=== PATIENT | male | born 1975 | race Two or more races ===

== ENCOUNTER 2021-04-12 16:01 | Inpatient (IN) | payer MEDICAID, OTHER ==
[~2021-04-12] VITALS: Ht 180.3 cm; Wt 86.2 kg
[2021-04-12] MEDS ORDERED: CLINDAMYCIN 600MG IV 50 ML IV ONE (17:30)
[2021-04-12] MEDS ORDERED: SODIUM CHLORIDE 0.9% 500 ML IV ONE (17:30)
[2021-04-12 18:17] LABS: Basophils # (auto) 0.1 10 ^3/uL (0-0.2); Basophils % (auto) 0.8 % (0.0-2.0); Eosinophils # (auto) 0.3 10 ^3/uL (0-0.8); Eosinophils % (auto) 1.6 % (0.0-7.0); Hematocrit 49.1 % (41.0-53.0); Hemoglobin 16.7 g/dL (13.5-17.5); Lymphocytes # (auto) 3.6 10 ^3/uL (0.4-5.4); Lymphocytes % (auto) 20.6 % (10.0-50.0); Mean Corpuscular Hemoglobin 30.3 pg (28.0-32.0); Mean Corpuscular Hgb Conc. 33.9 g/dL (32.0-36.0); Mean Corpuscular Volume 89.3 fL (80.0-100.0); Monocytes # (auto) 0.6 10 ^3/uL (0-1.3); Monocytes % (auto) 3.7 % (0.0-12.0); Neutrophils # (auto) 12.7 10 ^3/uL (1.6-8.6); Neutrophils % (auto) 73.3 % (37.0-80.0); Nucleated Red Blood Cells % 0.1 %; Red Cell Distribution Width 13.4 % (11.8-14.3); White Blood Cell 17.3 10^3/uL (4.4-10.8)
[2021-04-12 18:32] LABS: Albumin 3.7 g/dL (3.4-5.0); Calcium 9.5 mg/dL (8.5-10.1); Potassium 3.9 mmol/L (3.5-5.1)
[2021-04-12 18:34] LABS: INR 1.21 (0.9-1.15); Partial Thromboplastin Time 32.5 sec (23.6-33.0)
[2021-04-12 18:35] LABS: BUN/Creatinine Ratio 18.9; Bilirubin, Total 0.3 mg/dL (0.2-1.0); Total Protein 8.3 g/dL (6.4-8.2)
[2021-04-12] MEDS ORDERED: NITROGLYCERIN 0.4 MG SL TAB SL PRN (23:45)
[2021-04-12] MEDS ORDERED: DEXTROSE (50%) 50ML SYRG IV PRN (23:45)
[2021-04-12] MEDS ORDERED: MORPHINE SULFATE INJECTION 2 MG/ML SYRG IV PRN (23:45)
[2021-04-12] MEDS ORDERED: ONDANSETRON HCL 4 MG/2 ML VIAL IV PRN (23:45)
[2021-04-13] MEDS: PIPERACILLIN-TAZOB 3.375GM 100 ML IV SCH ×4 (06:00→17:34)
[2021-04-13] MEDS: ACCU-CHEK COMFORT CURVE STRIP VI SCH ×4 (07:00→21:54)
[2021-04-13] MEDS: InsuLIN REG 1unit/0.01ml Soln (100units/ml) SC SCH ×4 (07:00→21:52)
[2021-04-13] MEDS: ATORVASTATIN 20 MG TAB PO SCH (21:54)
[2021-04-13 22:49] VITALS: BP 133/73
[2021-04-14 00:44] VITALS: BP 133/73
[2021-04-14] MEDS: PIPERACILLIN-TAZOB 3.375GM 100 ML IV SCH ×5 (02:50→23:24)
[2021-04-14] MEDS ORDERED: CEPH500C PO (03:06)
[2021-04-14] MEDS ORDERED: AMLO-489 PO (03:06)
[2021-04-14] MEDS ORDERED: HYDR-4902 PO (03:06)
[2021-04-14] MEDS ORDERED: ATOR10TA52 PO (03:06)
[2021-04-14] MEDS ORDERED: LABE200T7 PO (03:06)
[2021-04-14 05:00] VITALS: BP 127/76
[2021-04-14] MEDS: ACCU-CHEK COMFORT CURVE STRIP VI SCH ×4 (06:31→21:52)
[2021-04-14] MEDS: InsuLIN REG 1unit/0.01ml Soln (100units/ml) SC SCH ×4 (06:31→21:53)
[2021-04-14 09:00] VITALS: BP 123/77
[2021-04-14] MEDS: amLODIPine BESYLATE 5 MG TAB PO SCH (09:35)
[2021-04-14 13:00] VITALS: BP 127/80
[2021-04-14 17:00] VITALS: BP 123/83
[2021-04-14 19:35] VITALS: BP 134/74
[2021-04-14] MEDS: ATORVASTATIN 20 MG TAB PO SCH (21:52)
[2021-04-15 05:48] LABS: Basophils # (auto) 0.1 10 ^3/uL (0-0.2); Basophils % (auto) 0.7 % (0.0-2.0); Eosinophils # (auto) 0.5 10 ^3/uL (0-0.8); Eosinophils % (auto) 3.3 % (0.0-7.0); Hematocrit 45.4 % (41.0-53.0); Hemoglobin 15.3 g/dL (13.5-17.5); Lymphocytes # (auto) 3.1 10 ^3/uL (0.4-5.4); Lymphocytes % (auto) 22.3 % (10.0-50.0); Mean Corpuscular Hemoglobin 30.3 pg (28.0-32.0); Mean Corpuscular Hgb Conc. 33.8 g/dL (32.0-36.0); Mean Corpuscular Volume 89.6 fL (80.0-100.0); Neutrophils # (auto) 9.4 10 ^3/uL (1.6-8.6); Neutrophils % (auto) 66.7 % (37.0-80.0); Nucleated Red Blood Cells % 0.1 %; Red Blood Cells 5.06 10^6/uL (4.5-5.90); Red Cell Distribution Width 13.3 % (11.8-14.3); White Blood Cell 14.1 10^3/uL (4.4-10.8)
[2021-04-15 06:00] VITALS: BP 135/83
[2021-04-15 06:10] LABS: INR 1.14 (0.9-1.15); Partial Thromboplastin Time 30.8 sec (23.6-33.0)
[2021-04-15] MEDS: PIPERACILLIN-TAZOB 3.375GM 100 ML IV SCH ×3 (06:17→17:53)
[2021-04-15] MEDS: ACCU-CHEK COMFORT CURVE STRIP VI SCH ×4 (06:17→21:43)
[2021-04-15] MEDS: InsuLIN REG 1unit/0.01ml Soln (100units/ml) SC SCH ×4 (06:21→21:43)
[2021-04-15 06:38] LABS: Albumin 3.2 g/dL (3.4-5.0); Calcium 8.7 mg/dL (8.5-10.1); Potassium 3.5 mmol/L (3.5-5.1)
[2021-04-15 06:43] LABS: BUN/Creatinine Ratio 21.4; Bilirubin, Total 0.3 mg/dL (0.2-1.0); Total Protein 7.2 g/dL (6.4-8.2)
[2021-04-15 07:10] LABS: Urine Bacteria FEW /hpf (None Seen); Urine Blood 1+ /uL (Negative); Urine Specific Gravity 1.024 (1.001-1.035); Urine WBC 1 /hpf (0 - 3)
[2021-04-15 09:00] VITALS: BP 123/76
[2021-04-15] MEDS: amLODIPine BESYLATE 5 MG TAB PO SCH (10:00)
[2021-04-15] MEDS ORDERED: ceFAZolin 1GM/50ML 100 ML IV ONE (12:21)
[2021-04-15] MEDS ORDERED: PROPOFOL 10 MG/ML 20 ML IV ONE (12:32)
[2021-04-15] MEDS ORDERED: MIDAZOLAM HCL 2MG/2ML 2ml VIAL (1mg/ml) ONE (12:32)
[2021-04-15] MEDS ORDERED: fentaNYL CITRATE 100 MCG/2 ML VL ONE (12:32)
[2021-04-15] MEDS ORDERED: ONDANSETRON HCL 4 MG/2 ML VIAL ONE (12:32)
[2021-04-15] MEDS ORDERED: SODIUM CHLORIDE LOCK 10 ML ONE (12:32)
[2021-04-15] MEDS ORDERED: ACCU-CHEK COMFORT CURVE STRIP VI ONE (13:00)
[2021-04-15] MEDS ORDERED: METOCLOPRAMIDE HCL 5MG/ml INJ 2ml VIAL IV PRN (13:00)
[2021-04-15] MEDS ORDERED: ceFAZolin 1GM VL ONE (13:00)
[2021-04-15] MEDS ORDERED: HYDROmorphone HCL 2 MG/ML VL IV PRN (13:00)
[2021-04-15] MEDS ORDERED: MORPHINE SULFATE 4 MG/ML SYR/VIAL IV PRN (13:00)
[2021-04-15] MEDS: MORPHINE SULFATE INJECTION 2 MG/ML SYRG IV PRN (15:18)
[2021-04-15] MEDS: ATORVASTATIN 20 MG TAB PO SCH (21:40)
[2021-04-15 22:00] VITALS: BP 152/105
[2021-04-16] VITALS (7 sets, daily range): BP systolic 122–151; BP diastolic 81–91
[2021-04-16] MEDS: PIPERACILLIN-TAZOB 3.375GM 100 ML IV SCH ×4 (06:13→18:11)
[2021-04-16] MEDS: ACCU-CHEK COMFORT CURVE STRIP VI SCH ×4 (06:14→22:00)
[2021-04-16] MEDS: InsuLIN REG 1unit/0.01ml Soln (100units/ml) SC SCH ×4 (06:30→22:00)
[2021-04-16] MEDS: amLODIPine BESYLATE 5 MG TAB PO SCH (10:33)
[2021-04-16] MEDS: ATORVASTATIN 20 MG TAB PO SCH (22:42)
[2021-04-16] MEDS: MORPHINE SULFATE INJECTION 2 MG/ML SYRG IV PRN (22:43)
[2021-04-17] MEDS: PIPERACILLIN-TAZOB 3.375GM 100 ML IV SCH ×5 (04:49→23:49)
[2021-04-17 05:00] VITALS: BP 122/82
[2021-04-17 06:21] LABS: Basophils # (auto) 0 10 ^3/uL (0-0.2); Basophils % (auto) 0.2 % (0.0-2.0); Eosinophils # (auto) 0.1 10 ^3/uL (0-0.8); Eosinophils % (auto) 0.4 % (0.0-7.0); Hematocrit 44.9 % (41.0-53.0); Hemoglobin 15.2 g/dL (13.5-17.5); Lymphocytes # (auto) 3.3 10 ^3/uL (0.4-5.4); Lymphocytes % (auto) 18.9 % (10.0-50.0); Mean Corpuscular Hemoglobin 30.2 pg (28.0-32.0); Mean Corpuscular Hgb Conc. 33.9 g/dL (32.0-36.0); Mean Corpuscular Volume 88.9 fL (80.0-100.0); Monocytes % (auto) 5.8 % (0.0-12.0); Neutrophils # (auto) 12.9 10 ^3/uL (1.6-8.6); Neutrophils % (auto) 74.7 % (37.0-80.0); Red Blood Cells 5.05 10^6/uL (4.5-5.90); Red Cell Distribution Width 13.4 % (11.8-14.3); White Blood Cell 17.3 10^3/uL (4.4-10.8)
[2021-04-17] MEDS: InsuLIN REG 1unit/0.01ml Soln (100units/ml) SC SCH ×4 (06:27→21:49)
[2021-04-17] MEDS: ACCU-CHEK COMFORT CURVE STRIP VI SCH ×4 (06:28→21:37)
[2021-04-17 06:39] LABS: BUN/Creatinine Ratio 27.6; Calcium 8.6 mg/dL (8.5-10.1); Potassium 3.7 mmol/L (3.5-5.1)
[2021-04-17 06:41] LABS: Bilirubin, Total 0.3 mg/dL (0.2-1.0); Total Protein 7.1 g/dL (6.4-8.2)
[2021-04-17 08:15] VITALS: BP 127/77
[2021-04-17 09:00] VITALS: BP 127/77
[2021-04-17] MEDS: amLODIPine BESYLATE 5 MG TAB PO SCH (10:14)
[2021-04-17] MEDS: MORPHINE SULFATE INJECTION 2 MG/ML SYRG IV PRN ×2 (14:33→16:30)
[2021-04-17 15:37] VITALS: BP 141/86
[2021-04-17] MEDS ORDERED: NICOTINE 21MG/24 HR TOPICAL PATCH TD ONE (17:15)
[2021-04-17 17:21] VITALS: BP 159/94
[2021-04-17] MEDS: ATORVASTATIN 20 MG TAB PO SCH (21:36)
[2021-04-17 22:00] VITALS: BP 149/88
[2021-04-18] MEDS: MORPHINE SULFATE INJECTION 2 MG/ML SYRG IV PRN (02:42)
[2021-04-18 05:00] VITALS: BP 133/81
[2021-04-18] MEDS: PIPERACILLIN-TAZOB 3.375GM 100 ML IV SCH ×4 (05:15→23:52)
[2021-04-18] MEDS: InsuLIN REG 1unit/0.01ml Soln (100units/ml) SC SCH ×4 (06:30→22:00)
[2021-04-18] MEDS: ACCU-CHEK COMFORT CURVE STRIP VI SCH ×4 (06:30→22:19)
[2021-04-18 09:00] VITALS: BP 151/92
[2021-04-18] MEDS: NICOTINE 21MG/24 HR TOPICAL PATCH TD SCH (10:00)
[2021-04-18] MEDS: amLODIPine BESYLATE 5 MG TAB PO SCH (10:13)
[2021-04-18 13:00] VITALS: BP 138/85
[2021-04-18 17:11] VITALS: BP 147/92
[2021-04-18] MEDS: ATORVASTATIN 20 MG TAB PO SCH (22:19)
[2021-04-18 23:16] VITALS: BP 134/84
[2021-04-19 04:58] VITALS: BP 123/77
[2021-04-19] MEDS: ACCU-CHEK COMFORT CURVE STRIP VI SCH ×4 (06:22→21:10)
[2021-04-19] MEDS: PIPERACILLIN-TAZOB 3.375GM 100 ML IV SCH ×3 (06:22→18:30)
[2021-04-19] MEDS: InsuLIN REG 1unit/0.01ml Soln (100units/ml) SC SCH ×4 (06:22→21:16)
[2021-04-19 09:30] VITALS: BP 133/87
[2021-04-19] MEDS: NICOTINE 21MG/24 HR TOPICAL PATCH TD SCH (10:00)
[2021-04-19] MEDS: amLODIPine BESYLATE 5 MG TAB PO SCH (10:45)
[2021-04-19 13:00] VITALS: BP 140/80
[2021-04-19 17:00] VITALS: BP 128/77
[2021-04-19] MEDS: ATORVASTATIN 20 MG TAB PO SCH (21:10)
[2021-04-19 22:00] VITALS: BP 139/86
[2021-04-20] MEDS: PIPERACILLIN-TAZOB 3.375GM 100 ML IV SCH ×3 (00:18→11:39)
[2021-04-20 05:00] VITALS: BP 140/87
[2021-04-20] MEDS: InsuLIN REG 1unit/0.01ml Soln (100units/ml) SC SCH ×2 (05:35→11:41)
[2021-04-20] MEDS: ACCU-CHEK COMFORT CURVE STRIP VI SCH ×2 (05:35→11:07)
[2021-04-20 09:00] VITALS: BP 125/79
[2021-04-20] MEDS: NICOTINE 21MG/24 HR TOPICAL PATCH TD SCH (10:00)
[2021-04-20] MEDS: amLODIPine BESYLATE 5 MG TAB PO SCH (11:07)
[2021-04-20 13:12] VITALS: BP 146/98
== END 2021-04-20 15:10 | disposition home health service (06) | DRG 380 ==
LOC: ER 16:01 → TELE 23:32 → TELE-WESTW 04-13 20:47 → WEST WING 04-16 06:55
PROVIDERS: ADMIT Internal Medicine; ATTEND Internal Medicine
PROC: 0JBR0ZZ Excision of Left Foot Subcutaneous Tissue and Fascia, Open Approach (ICD-10-PCS; principal; 2021-04-15 13:04)
DX: E11.621 Type 2 diabetes mellitus with foot ulcer (principal); L97.429 Non-pressure chronic ulcer of left heel and midfoot with unspecified severity; L03.116 Cellulitis of left lower limb; I10 Essential (primary) hypertension; F17.210 Nicotine dependence, cigarettes, uncomplicated; E78.5 Hyperlipidemia, unspecified; Z20.822 Contact with and (suspected) exposure to COVID-19; X58.XXXA Exposure to other specified factors, initial encounter; Y93.89 Activity, other specified; Y92.89 Other specified places as the place of occurrence of the external cause; Y99.8 Other external cause status
CPT/HCPCS: 36415; 71045; 73700; 73718; 80053; 81001; 82962; 83036; 85025; 85610; 85730; 86850; 86900; 86901; 87070; 87075; 87205; 87426; 96365; 96367; 96372; G0378; J0690; J1815; J2250; J2405; J2543; J2704; J3490